=== PATIENT | male | born 1935 | race Caucasian/White ===

== ENCOUNTER 2018-09-21 21:13 | Emergency (ER) | payer MEDICARE, BC ==
[~2018-09-21] VITALS: Ht 172.7 cm; Wt 62.6 kg
[~2018-09-21 21:13] MED LIST: ALBU8.5H4 IH; ASPI-612 PO; CITA-278 PO; ESOM40CA PO; MULT-1074 PO; NITR0.4T51 SL; SILD50TA PO; ZET10T PO
[2018-09-21] MEDS ORDERED: glucagon, human recombinant 1mg kit IV ONE (21:50)
[2018-09-21 22:45] LABS: BASOPHILS # (AUTO) 0.1 X10'3 (0-0.2); BASOPHILS % (AUTO) 0.9 % (0-1); EOSINOPHILS # (AUTO) 0.1 X10'3 (0-0.9); EOSINOPHILS % (AUTO) 1.9 % (0-6); HEMATOCRIT 42.6 % (42.0-52.0); HEMOGLOBIN 14.3 g/dl (14.0-17.9); LYMPHOCYTES # (AUTO) 2.6 X10'3 (1.1-4.8); LYMPHOCYTES % (AUTO) 34.7 % (21-51); MEAN CORPUSCULAR HEMOGLOBIN 30.8 PG (27.0-31.0); MEAN CORPUSCULAR HGB CONC 33.5 g/dL (33.0-36.5); MEAN CORPUSCULAR VOLUME 92.1 FL (78-98); MEAN PLATELET VOLUME 9.2 FL (7.4-10.4); MONOCYTES # (AUTO) 0.8 X10'3 (0-0.9); MONOCYTES % (AUTO) 10.4 % (2-12); NEUTROPHILS # (AUTO) 3.9 X10'3 (1.8-7.7); NEUTROPHILS % (AUTO) 52.1 % (42-75); PLATELET COUNT 212 X10'3 (140-440); RED BLOOD COUNT 4.63 X10'6 (4.70-6.10); RED CELL DISTRIBUTION WIDTH 13.6 % (11.5-14.5); WHITE BLOOD COUNT 7.5 X10'3 (4.5-11.0)
[2018-09-21 22:52] LABS: ALANINE AMINOTRANSFERASE 32 U/L (12-78); ALBUMIN 3.7 G/DL (3.4-5.0); ALKALINE PHOSPHATASE 56 IU/L (46-116); ANION GAP 9 (8-16); ASPARTATE AMINO TRANSFERASE 25 U/L (10-37); BILIRUBIN,TOTAL 0.3 MG/DL (0.1-1.0); BLOOD UREA NITROGEN 26 MG/DL (7-18); CHLORIDE 103 MMOL/L (99-107); GLUCOSE 125 MG/DL (70-104); POTASSIUM 4.3 MMOL/L (3.5-5.1); SODIUM 140 MMOL/L (135-145); TOTAL CARBON DIOXIDE 27.7 MMOL/L (24-32); TOTAL PROTEIN 7.4 G/DL (6.4-8.2); eGFR 72 ML/MIN
[2018-09-21 23:20] VITALS: BP 137/76
[2018-09-21] MEDS ORDERED: LIDOcaine Viscous 15ml cup ONE (23:30)
[2018-09-21] MEDS ORDERED: MIDAZolam 5mg/5ml vial ONE (23:30)
[2018-09-21] MEDS ORDERED: fentaNYL/PF 50MCG/1 ML 2ML syringe ONE (23:30)
[2018-09-21 23:48] VITALS: BP 137/76
[2018-09-21 23:58] VITALS: BP 132/70
[2018-09-22 00:08] VITALS: BP 121/72
[2018-09-22 00:18] VITALS: BP 127/79
[2018-09-22 00:33] VITALS: BP 143/93
[2018-09-22] MEDS ORDERED: PANT-47 PO (00:43)
== END 2018-09-22 01:00 | disposition home or self-care (01) ==
LOC: ER 21:14
DX: T18.128A Food in esophagus causing other injury, initial encounter (principal); I25.10 Atherosclerotic heart disease of native coronary artery without angina pectoris; Z95.1 Presence of aortocoronary bypass graft; Z98.890 Other specified postprocedural states; Z79.82 Long term (current) use of aspirin; Z79.899 Other long term (current) drug therapy; X58.XXXA Exposure to other specified factors, initial encounter; Y93.89 Activity, other specified; Y92.89 Other specified places as the place of occurrence of the external cause; Y99.9 Unspecified external cause status
CPT/HCPCS: 36415; 43247; 71045; 80053; 85025; 96374; 99152; 99153; 99285; J1610; J2250; J3010; J7030; A4620